=== PATIENT | male | born 1995 | race Caucasian/White ===

== ENCOUNTER 2020-08-24 11:15 | Outpatient (REF) | payer BC, SELFPAY | END 2020-08-24 11:16 | disposition home or self-care (01) | LOC: HO.WFDLDS 11:15 | PROVIDERS: Visit Provider Internal Medicine | DX: Z20.828 Contact with and (suspected) exposure to other viral communicable diseases (principal) | CPT/HCPCS: C9803; U0003 ==

== ENCOUNTER 2020-11-26 14:54 | Outpatient (REF) | payer BC, SELFPAY | END 2020-11-26 14:55 | disposition home or self-care (01) | LOC: HO.HMGCLDS 14:54 | PROVIDERS: PCP Internal Medicine; Visit Provider Internal Medicine | DX: Z20.822 Contact with and (suspected) exposure to COVID-19 (principal) | CPT/HCPCS: 36415; C9803; U0003; U0005 ==